=== PATIENT | male | born 1985 | race Caucasian/White ===

== ENCOUNTER 2019-07-09 13:16 | Emergency (ER) | payer SELFPAY | END 2019-07-09 18:07 | PROVIDERS: Emergency Provider Nurse Practitioner Family; Family Provider Nurse Practitioner; Visit Provider Nurse Practitioner Family | DX: R07.89 Other chest pain (principal); B34.9 Viral infection, unspecified; E11.9 Type 2 diabetes mellitus without complications; Z79.4 Long term (current) use of insulin; Z88.5 Allergy status to narcotic agent; F17.210 Nicotine dependence, cigarettes, uncomplicated | CPT/HCPCS: 36415; 71045; 80053; 81003; 82962; 84439; 84443; 84484 ×2; 85025; 93005 ×2; 99283 ==

== ENCOUNTER → 2019-09-30 10:27 | Outpatient (BNVA) | payer MEDICARE, SELFPAY | PROVIDERS: Family Provider Nurse Practitioner; PCP Nurse Practitioner; Visit Provider Nurse Practitioner | DX: E10.9 Type 1 diabetes mellitus without complications (principal); M54.16 Radiculopathy, lumbar region | CPT/HCPCS: 80053; 80061; 82044; 83036 ==

== ENCOUNTER → 2020-05-18 15:02 | Outpatient (BNVA) | payer MEDICARE, SELFPAY | PROVIDERS: Family Provider Nurse Practitioner; PCP Nurse Practitioner; Visit Provider Nurse Practitioner Family | DX: E10.9 Type 1 diabetes mellitus without complications (principal); M54.16 Radiculopathy, lumbar region; Z79.899 Other long term (current) drug therapy | CPT/HCPCS: 80053; 80061; 83036; 84443; 85025 ==

== ENCOUNTER → 2020-06-13 14:22 | Outpatient (BNVA) | payer MEDICARE, SELFPAY | PROVIDERS: Family Provider Nurse Practitioner; PCP Nurse Practitioner; Visit Provider Emergency Medicine | DX: Z11.59 Encounter for screening for other viral diseases (principal) | CPT/HCPCS: 87635 ==

== ENCOUNTER → 2020-09-15 10:19 | Outpatient (BNVA) | payer MEDICARE, SELFPAY | PROVIDERS: Family Provider Nurse Practitioner; PCP Nurse Practitioner; Visit Provider Nurse Practitioner Family | DX: E10.9 Type 1 diabetes mellitus without complications (principal); M54.16 Radiculopathy, lumbar region | CPT/HCPCS: 80053; 80061; 83036; 84443; 85025 ==

== ENCOUNTER 2021-07-15 12:05 | Outpatient (CLI) | payer MEDICARE, SELFPAY ==
--- NOTE | 2021-07-15 12:24 | ECG_ITS ---
[facility] Test Date: 2021-07-15 Pat Name: Gurinder Araujo Department: Room: Gender: Male State Editor: : 1985 Requested By: Catrachita Duncan Order Number: [id number] Nhung MD: Anabel West M.D. Measurements Intervals [place] Rate: 74 P: 79 IN: 127 QRS: 81 QRSD: 93 T: 75 QT: 368 QTc: 410 Interpretive Statements SINUS RHYTHM Compared to ECG 07/09/2019 15:42:05 No significant changes Electronically Signed On 07-15-2021 20:41:37 TOOL DESIGN DRAFTER by Anabel West M.D. [id number]
[2021-07-15 12:54] LABS: Basophils % 0.6 %; Eosinophils # 0.1 10^3/uL (0.0-0.8); Eosinophils % 1.6 %; Hematocrit 46.4 % (42.0-52.0); Hemoglobin 14.7 g/dL (11.7-16.6); Lymphocytes # 0.8 10^3/uL (0.8-4.8); Lymphocytes % 11.2 %; Mean Corpuscular HGB Conc 31.7 g/dL (30.0-36.0); Mean Corpuscular Hemoglobin 27.7 pg (28.0-34.0); Mean Corpuscular Volume 87.5 fl (80-94); Mean Platelet Volume 10.4 fL (7.4-10.4); Monocytes # 0.3 10^3/uL (0.2-0.9); Monocytes % 4.3 %; Neutrophils # 5.72 10^3/uL (1.8-7.7); Neutrophils % 82.2 %; Nucleated Red Blood Cells % 0 %; Platelet Count 259 10^3/cmm (130-400); Red Cell Distribution Width 12.4 % (12.1-15.1)
[2021-07-15 13:10] LABS: Estmated Average Glucose 120; Hemoglobin A1C 5.8 % (4.0-6.0)
[2021-07-15 13:11] LABS: Troponin T (5th) Once 6 ng/L (0-15)
[2021-07-15 13:19] LABS: Alanine Aminotransferase 21 U/L (0-41); Alkaline Phosphatase 104 IU/L (40-130); Anion Gap 16.9 (5-19); Aspartate Amino Transferase 24 U/L (0-40); Blood Urea Nitrogen 10 mg/dL (6-20); C Reactive Protein 5.3 mg/L (0.0-4.9); Calcium 9.2 mg/dL (8.5-10.5); Carbon Dioxide 26 mmol/L (22-29); Chloride 99 mmol/L (98-107); Chol HDL Ratio 2.24 mg/dL (1.0-5.00); Cholesterol 193 mg/dL (0-200); Globulin 2.9 g/dL (1.3-4.6); Glucose 98 mg/dL (65-115); HDL Cholesterol 86 mg/dL (60-100); LDL Cholesterol Calculated 96 mg/dL (50-129); Osmolality Calculated 285 mOsm/kg (285-295); Potassium 3.9 mmol/L (3.5-5.1); Sodium 138 mmol/L (136-145); Thyroid Stimulating Hormone 0.84 uIU/mL (0.27-4.20); Total Bilirubin 0.8 mg/dL (0.15-1.2); Total Protein 7.9 g/dL (6.6-8.7); Triglycerides 57 mg/dL (0-150); VLDL Cholestrol Calculation 11 mg/dL (0-30)
[2021-07-15 13:19] LABS: Add Urine Microscopic? YES; Bilirubin Urine Neg (Negative); Blood Urine 2+ (Negative); Glucose Urine UA Norm (Normal); Ketones Urine Negative (Negative); Leukocyte Esterase Urine Negative (Negative); Nitrate Urine Negative (Negative); Protein Urine Neg (Negative); Specific Gravity, Urine 1.015 (1.005-1.030); Urine Appearance Clear (CLEAR); Urine Color Yellow (Yellow); Urobilinogen Urine Norm (Negative); pH Urine 5 (5-7)
[2021-07-15 13:20] LABS: Add Urine Culture? No; RBC Urine 0-4 /hpf (0-2)
== END 2021-07-15 12:06 | disposition home or self-care (01) ==
PROVIDERS: PCP Nurse Practitioner; Visit Provider Nurse Practitioner
DX: E10.9 Type 1 diabetes mellitus without complications (principal); I10 Essential (primary) hypertension
CPT/HCPCS: 80053; 80061; 81001; 83036; 84443; 84484; 85025; 86140; 93005

== ENCOUNTER → 2022-12-26 16:38 | Outpatient (BNVA) | payer MEDICARE, SELFPAY | PROVIDERS: PCP Nurse Practitioner; Visit Provider Nurse Practitioner | DX: R19.8 Other specified symptoms and signs involving the digestive system and abdomen (principal); E10.9 Type 1 diabetes mellitus without complications; R53.83 Other fatigue; E55.9 Vitamin D deficiency, unspecified; M54.16 Radiculopathy, lumbar region | CPT/HCPCS: 80053; 80061; 81000; 82043; 82306; 82607; 83036; 85025 ==

== ENCOUNTER 2022-12-30 14:12 | Outpatient (CLI) | payer MEDICARE, SELFPAY ==
[2022-12-30] MEDS: iohexol 350 mg/mL 500 mL Btl (per mL) PO (14:22)
[2022-12-30] MEDS: iohexol 350 mg/mL 500 mL Btl (per mL) IV (14:22)
--- NOTE | 2022-12-30 14:30 | CT_ITS ---
WS: [id number] CT ABDOMEN AND PELVIS WITH CONTRAST HISTORY: History of diverticula. TECHNIQUE: Imaging performed of the abdomen and pelvis with IV contrast. Single phase imaging of the abdomen. Coronal and sagittal reformats are submitted. All CT scans at [facility] use at [address] one of these dose optimization techniques: automated exposure control; mA and/or kV adjustment per patient size (includes targeted exams where dose is matched to clinical indication); or iterative re construction. IV CONTRAST: Omnipaque 350; 100 mL IV. Oral contrast: Yes. DLP: 279.33 mGy.cm COMPARISON: 03/19/2019 Lower thorax: Lung bases are clear. Heart is normal size. No hiatal hernia. Liver/biliary system: Normal size with no intrahepatic dilatation. Gallbladder: Normal. No gallstones or wall thickening. No pericholecystic fluid. Pancreas: Normal size pancreas and pancreatic duct. No adjacent inflammation. Spleen: Normal size spleen. No mass or infarct. Adrenal glands: Normal. Right kidney: Normal. Left kidney: Normal. Aorta: Normal. Lymphadenopathy: None. Free fluid: None. GI tract: Prior colectomy. Ileorectal anastomosis is identified. Anastomotic site is similar to the p rior study. No inflammatory changes or obstruction. Abdominal wall: Unremarkable abdominal wall. No hernia. Pelvis: No free fluid or adenopathy within the pelvis. Bones: Unremarkable. CT/CT abdomen pelvis w con* [id number] IMPRESSION: 1. Status post colectomy and ileorectal anastomosis as noted on prior exams. T here is no obstruction or inflammation. 2. No adenopathy or ascites.
== END 2022-12-30 14:13 | disposition home or self-care (01) ==
PROVIDERS: PCP Nurse Practitioner; Visit Provider Nurse Practitioner
DX: R19.8 Other specified symptoms and signs involving the digestive system and abdomen (principal); E10.9 Type 1 diabetes mellitus without complications; R53.83 Other fatigue; E55.9 Vitamin D deficiency, unspecified; K63.0 Abscess of intestine
CPT/HCPCS: 74177; Q9967

== ENCOUNTER → 2023-10-02 15:43 | Outpatient (BNVA) | payer MEDICARE, SELFPAY | PROVIDERS: PCP Nurse Practitioner; Visit Provider Nurse Practitioner | DX: E11.9 Type 2 diabetes mellitus without complications | CPT/HCPCS: 80053; 80061; 81000; 83036 ==

== ENCOUNTER 2023-12-15 14:05 | Emergency (ER) | payer MEDICARE, SELFPAY ==
[2023-12-15 14:13] VITALS: BP 169/88; PULSE 87; RESP 16; TEMP 36.3; O2SAT 100; BMI 24.4
--- NOTE | 2023-12-15 14:20 | XR_ITS ---
WS: [id number] XR hand LT min 3V* [id number] REASON FOR EXAM: numb FINDINGS: No fracture or focal bone lesion. Joint spaces of the hand are intact and well maintained. No soft tissue abnormality. No abnormality of the wrist is identified. XR/XR hand LT min 3V* [id number] IMPRESSION: No significant abnormality.
--- NOTE | 2023-12-15 14:20 | XR_ITS ---
WS: [id number] XR wrist LT min 3V* [id number] REASON FOR EXAM: numb FINDINGS: No fracture or focal bone lesion. Radiocarpal joint is intact and well maintained. Normal carpal bones and intercarpal joint spaces. No soft tissue abnormality. XR/XR wrist LT min 3V* [id number] IMPRESSION: No significant abnormality.
--- NOTE | 2023-12-15 14:22 | ED_ITS ---
HPI - Extremity Problem General: Chief complaint: Extremity Problem,Nontraumatic Stated complaint: left hand numb Time Seen by Provider: 12/15/23 14:13 Source: patient Mode of arrival: ambulatory History of Present Illness: 38-year-old male presents emergency room with complaint of left hand numbness although he isolates it to the thumb second and third fingers that began while he was mowing on the lawn. He attends emergency room with his mother who states she also had some difficulty with words for a brief period of time but that is completely resolved. Patient was riding on a more denies any other trauma or falls. He has not previously had similar problems he is diabetic and hypertensive blood pressure is slightly elevated on arrival here he is otherwise awake and alert and oriented Onset (ago): hour(s) Location: left and upper extremity Quality: other (Numbness) Relieving factors: nothing Exacerbating factors: nothing Associated symptoms: Deny chest pain, fever(s) or rash Review of Systems Const: Denies: fever(s), chills, fatigue or malaise Card: Denies: chest pain Resp: Denies: dyspnea GI: Denies: abdominal pain, nausea or vomiting : Denies: dysuria, urinary frequency or urinary urgency Musc: Denies: neck pain or back pain Skin/Breast: Denies: rash Neuro: Reports: numbness in extremities (Left hand) [facility] ED PFSH: Medical History Chronic lumbar radiculopathy History of diverticular abscess of colon DM type 1, goal A1C below 7.5% Surgical History Hx of myringotomy History of colon surgery Family History Mother Hypertension Social History Smoking and tobacco/nicotine status: never used tobacco/nicotine Second hand smoke exposure: No Alcohol intake: former Substance/Drug Use: unknown Adopted: No Caregiver/support person: No Lives independently: Yes Household members: children Housing: House Marital status: Single Number of children: 1 service: No Current occupational status: employed Pets and animals: Yes Pets & animals: dog(s) Do you think of yourself as: Straight/Heterosexual Current gender identity: Male Physical Exam Const: GENERAL APPEARANCE: cooperative and comfortable ORIENTATION/CONSCIOUSNESS: Yes awake, Yes oriented to person, Yes oriented to place and Yes oriented to time HENMT: COMMON NORMALS: normocephalic, atraumatic and hearing grossly normal bilaterally HEAD & SCALP: normocephalic and atraumatic Resp: COMMON NORMALS: normal respiratory effort, No retractions, No use of accessory muscles and clear to auscultation bilaterally AUSCULTATION: clear to auscultation bilaterally Cardio: COMMON NORMALS: regular rate, regular rhythm and No murmurs present (Cardio) RATE: regular rate RHYTHM: regular rhythm GI: COMMON NORMALS: Soft to palpation and No hepatosplenomegaly present AUSCULTATION: Yes normoactive bowel sounds PALPATION: Yes Soft to palpation, No Tenderness to palpation present (GI), No Guarding due to palpation present (GI) and Yes No hepatosplenomegaly present Extremity: COMMON NORMALS: normal to inspection, capillary refill normal, no clubbing, cyanosis or edema, no calf tenderness and no pedal edema OTHER: Decreased sensation in the median nerve distribution of the left hand. Vascularly intact. No obvious injury or deformity. Neuro: SENSORIUM/ORIENTATION: Yes oriented to person, Yes oriented to place and Yes oriented to time Skin: COMMON NORMALS: no rashes or lesions noted GENERAL SKIN EXAM: no rashes or lesions noted Course Vital Signs: Vital signs: Vital Signs Temperature 97.6 F 12/15/23 16:06 Pulse Rate 79 12/15/23 16:06 Respiratory Rate 16 12/15/23 16:06 Blood Pressure 142/90 12/15/23 16:06 Pulse Oximetry 100 12/15/23 16:06 MDM - Extremity (Nontraumatic) Medical Decision Making He has no dysarthria dysphagia nose NIH score is 1 with the discomfort and that limited area in the distribution of the median nerve. I think this is more median nerve entrapment carpal tunnel. Anti-inflammatories prescribed. If persist follow-up with his primary care for further evaluation. We did do a CT of the head which was negative. Repeat exam at time of discharge is unremarkable Medical Records I reviewed the patient's medical records. Lab Data I reviewed the patient's lab results. Radiology Impressions Hand X-Ray 12/15/23 14:20 IMPRESSION: No significant abnormality. Wrist X-Ray 12/15/23 14:20 IMPRESSION: No significant abnormality. Head CT 12/15/23 14:54 IMPRESSION: 1. No acute intracranial abnormality. Laboratory Results POC Glucose 138 mg/dL (70-110) H 12/15/23 14:48 All radiology interpretation(s) finalized by discharge Discharge Plan Discharge Patient Disposition: Home Clinical Impression: Left median nerve neuropathy Condition: Stable Prescriptions: New diclofenac sodium 75 mg tablet,delayed release (DR/EC) 75 mg PO Q12H PRN (Reason: pain) Qty: 20 0RF No Action mupirocin 2 % ointment 1 applic topical BID Qty: 22 0RF insulin aspart U-100 [Novolog U-100 Insulin aspart] 100 unit/mL solution See Rx Instructions SUBCUT TID PRN (Reason: hyperglycemia) 30 Days Qty: 10 2RF Rx Instructions: 3-15 units SUBCUT three times daily PRN; gabapentin 300 mg capsule 300 mg PO DAILY 30 Days Qty: 30 5RF valsartan [Diovan] 40 mg tablet 40 mg PO DAILY Qty: 30 5RF insulin glargine [Lantus Solostar U-100 Insulin] 100 unit/mL (3 mL) insulin pen See Rx Instructions SUBCUT QAM Qty: 15 2RF Rx Instructions: up to 25U subcutaneously every morning; (DME) insulin syringe-needle U-100 [BD Insulin Syringe Ultra-Fine] 1 mL 31 gauge x 5/16 syringe See Rx Instructions .ROUTE .MEDSUPPLY Qty: 100 11RF Rx Instructions: As directed Discharge Orders: Discharge ED (Routine); Ordered 12/15/23 Ordered By: Heladio Renner Referrals: Catrachita Kirby, [facility] [Primary Care Provider] - Discharge Diet: Usual diet Discharge Activity: Increase activity as tolerated Patient Instructions: Carpal Tunnel Syndrome, Opioid Safety, Pain Management Activity Restrictions/Additional Instructions: Thank you for choosing [facility] for your healthcare needs today. It is very important that you follow up as instructed or that you return to the Emergency Department should you have concerns or if your condition changes or worsens in any way. You were seen today for numbness in your hand. Your stroke score was negative. CT of the head was negative. X-ray of the wrist there is possibly an remote fracture of the distal radius but no acute fractures. On physical exam findings are consistent with a medial nerve compression on the left wrist. This is typically called carpal tunnel syndrome. You can use the anti-inflammatories as needed. If symptoms persist or worsen follow-up with your primary care doctor. Coding Level of Care Code ED Electron Tube Assembler for Stephen Arana NIH stroke score NIHSS Level Of Consciousness - 1a: 0 Level Of Consciousness Questions - 1b: Both Correct Level Of Consciousness Commands - 1c: Both Correct Best Gaze - 2: Normal Visual Fischer - 3: No Visual Loss Facial Palsy - 4: Normal Motor Arm Right - 5: No Drift Motor Arm Left - 5: No Drift Motor Leg Right - 6: No Drift Motor Leg Left - 6: No Drift Limb Ataxia - 7: Absent Sensory - 8: Mild To Moderate Loss ( distribution of the median nerve on the left hand) Best Language - 9: No Aphasia Dysarthia - 10: Normal Extinction And Inattention - 11: 0 Score Total Score: 1
[2023-12-15 14:50] LABS: Glucose Point of Care 138 mg/dL (70-110)
--- NOTE | 2023-12-15 14:54 | CTR_ITS ---
PROCEDURE INFORMATION: Exam: CT Head Without Contrast Exam date and time: 12/15/2023 3:00 PM Age: 38 years old Clinical indication: Weakness, extremity; Left; Additional info: Dysarthria TECHNIQUE: Imaging protocol: Computed tomography of the head without contrast. Radiation optimization: All CT scans at this facility use at least one of these dose optimization techniques: automated exposure control; mA and/or kV adjustment per patient size (includes targeted exams where dose is matched to clinical indication); or iterative reconstruction. COMPARISON: No relevant prior studies available. RADIATION DOSE METRICS: Total DLP (mGy-cm): 1062.48 FINDINGS: Brain: No evidence of intra-axial or extra-axial hemorrhage. No mass effect or midline shift. Mccoy-white differentiation is maintained. Basilar cisterns are patent. Cerebral ventricles: No hydrocephalus. Paranasal sinuses: The visualized paranasal sinuses are well aerated. Mastoid air cells: The visualized mastoids and middle ears are clear. Bones: Unremarkable. No acute fracture. Soft tissues: No gross soft tissue abnormality. CT/CT head wo con* [id number] IMPRESSION: 1. No acute intracranial abnormality.
[2023-12-15 16:06] VITALS: BP 142/90; PULSE 79; RESP 16; TEMP 36.4; O2SAT 100
== END 2023-12-15 16:07 | disposition home or self-care (01) ==
PROVIDERS: Emergency Provider Family Medicine; PCP Nurse Practitioner
DX: G56.12 Other lesions of median nerve, left upper limb (principal); Z79.4 Long term (current) use of insulin; E10.9 Type 1 diabetes mellitus without complications
CPT/HCPCS: 36416; 70450; 73110; 73130; 82962; 99284

== ENCOUNTER → 2024-03-26 09:59 | Outpatient (BNVA) | payer MEDICARE, SELFPAY | PROVIDERS: PCP Nurse Practitioner; Visit Provider Nurse Practitioner | DX: E11.9 Type 2 diabetes mellitus without complications (principal) | CPT/HCPCS: 80053; 82043; 83036 ==

== ENCOUNTER → 2024-12-23 15:47 | Outpatient (BNVA) | payer MEDICARE, SELFPAY | PROVIDERS: PCP Nurse Practitioner; Visit Provider Nurse Practitioner | DX: E10.9 Type 1 diabetes mellitus without complications (principal); Z87.19 Personal history of other diseases of the digestive system | CPT/HCPCS: 80053; 80061; 82043; 82607; 83036; 83735; 85025 ==

== ENCOUNTER 2024-12-31 08:34 | Outpatient (CLI) | payer MEDICARE, SELFPAY ==
--- NOTE | 2024-12-31 09:30 | CT_ITS ---
WS: [id number] CT ABDOMEN AND PELVIS WITH CONTRAST HISTORY: History of ulcerative colitis. Pain in the RIGHT lower quadrant for 3 weeks. TECHNIQUE: Imaging performed of the abdomen and pelvis with IV contrast. Single phase imaging of the abdomen. Coronal and sagittal reformats are submitted. All CT scans at [facility] use at least one of these dose optimization techniques: automated exposure control; mA and/or kV adjustment per patient size (includes targeted exams where dose is matched to clinical indication); or iterative reconstruction. IV CONTRAST: Omnipaque 350; 100 mL IV. Oral contrast: Yes. DLP: 285.17 mGy.cm COMPARISON: 12/30/2022 Lower thorax: Lung bases are clear. Heart is normal size. No hiatal hernia. Liver/biliary system: Normal size with no intrahepatic dilatation. Gallbladder: Normal. No gallstones or wall thickening. No pericholecystic fluid. Pancreas: Normal size pancreas and pancreatic duct. No adjacent inflammation. Spleen: Normal size spleen. No mass or infarct. Adrenal glands: Normal. Right kidney: Normal. Left kidney: Normal. Aorta: Limited evaluation of the aorta and mesenteric vessels due to poor bolus. No abnormality identified. Lymphadenopathy: None. Free fluid: None. GI tract: Mildly distended stomach. No small bowel obstruction is evident. No wall thickening or stricture. Prior colectomy. Ileorectal anastomosis is identified. Within the distal small bowel just prior to the anastomotic sutures is circumferential wall thickening measuring 0.7 cm. The area of stricture measures 3 cm in length. Similar findings noted on 12/30/2022. Just distally there is inspissated fecal material within the dilated rectal pouch. Additional sutures towards the anus. Abdominal wall: Unremarkable abdominal wall. No hernia. Pelvis: No free fluid or adenopathy within the pelvis. Bones: Unremarkable. CT/CT abdomen pelvis w con* [id number] IMPRESSION: 1. Status post colectomy. Ileorectal anastomosis is identified. There is mild wall thickening and a short segment stricture measuring 3 cm in length. This is better seen on today's exam but was probably also present on the prior study w ith no progression. There is no obstruction. 2. Inspissated fecal material in the rectal pouch, distal to the ileal narrowi ng. With the markedly inspissated fecal material in the rectum this may indicat e a more distal mild stenosis. 3. Additional sutures are identified at the anus. There is no evidence for hig h-grade obstruction. Correlate clinically for abnormality at the anus. The anus is a difficult area to evaluate by CT. 4. No free air or ascites.
[2024-12-31] MEDS: iohexol 350 mg/mL 500 mL Btl (per mL) PO (09:44)
[2024-12-31] MEDS: iohexol 350 mg/mL 500 mL Btl (per mL) IV (09:55)
== END 2024-12-31 08:35 | disposition home or self-care (01) ==
PROVIDERS: PCP Nurse Practitioner; Visit Provider Nurse Practitioner
DX: R10.31 Right lower quadrant pain (principal); Z87.19 Personal history of other diseases of the digestive system
CPT/HCPCS: 74177

== ENCOUNTER → 2025-04-28 16:36 | Outpatient (BNVA) | payer MEDICARE, SELFPAY | PROVIDERS: PCP Nurse Practitioner; Visit Provider Nurse Practitioner | DX: E11.9 Type 2 diabetes mellitus without complications (principal) | CPT/HCPCS: 80053; 80061; 83036 ==